=== PATIENT | male | born 1960 | race African-American/Black ===

== ENCOUNTER 2017-08-17 08:28 | Emergency (ER) | payer BC, MEDICAID ==
[~2017-08-17] VITALS: Ht 177.8 cm; Wt 69.1 kg
[~2017-08-17 08:28] MED LIST: ATEN25TA PO; CYCL5TAB PO; HYDR50TA3 PO; IBUP-1222 PO
[2017-08-17 08:31] VITALS: BP 180/90
== END 2017-08-17 08:59 | disposition home or self-care (01) ==
LOC: ED 08:53
DX: I10 Essential (primary) hypertension (principal)
CPT/HCPCS: 99281

== ENCOUNTER 2019-11-16 18:16 | Emergency (ER) | payer OTHER, MEDICAID ==
[~2019-11-16] VITALS: Ht 177.8 cm; Wt 68.8 kg
[2019-11-16 18:40] VITALS: BP 178/94
[2019-11-16] MEDS ORDERED: FLUORESCEIN OPHTHALMIC 1 MG STRIP EACHEYE ONE (19:00)
[2019-11-16] MEDS ORDERED: FLUORESCEIN OPHTHALMIC 1 MG STRIP ONE (19:22)
[2019-11-16] MEDS ORDERED: PROPARACAINE OPHTH 0.5%, 15ML ONE (19:23)
== END 2019-11-16 19:36 | disposition home or self-care (01) ==
LOC: ED 19:25
DX: H10.022 Other mucopurulent conjunctivitis, left eye (principal); I10 Essential (primary) hypertension; F17.200 Nicotine dependence, unspecified, uncomplicated
CPT/HCPCS: 99283

== ENCOUNTER 2020-01-16 09:49 | Emergency (ER) | payer MEDICAID, OTHER ==
[~2020-01-16] VITALS: Ht 177.8 cm; Wt 66.9 kg
[2020-01-16 09:53] VITALS: BP 193/84
--- NOTE | 2020-01-16 10:42 | NUR ---
Patient given discharge instructions and they have confirmed that they understand the instructions. Patient ambulatory with steady gait. Pt left with d/c paperwork, Rx, and all personal belongigns.
== END 2020-01-16 10:44 | disposition home or self-care (01) ==
LOC: ED 10:08
DX: S39.012A Strain of muscle, fascia and tendon of lower back, initial encounter (principal); I10 Essential (primary) hypertension; F17.210 Nicotine dependence, cigarettes, uncomplicated; X58.XXXA Exposure to other specified factors, initial encounter; Y93.89 Activity, other specified; Y92.89 Other specified places as the place of occurrence of the external cause; Y99.8 Other external cause status
CPT/HCPCS: 99283